=== PATIENT | female | born 1950 | race Two or more races ===

== ENCOUNTER 2017-08-28 13:00 | Inpatient (IN) | payer OTHER ==
[~2017-08-28] VITALS: Ht 152.4 cm; Wt 62.6 kg
[2017-08-28] MEDS ORDERED: COZAAR50 MG PO (15:34)
[2017-08-28] MEDS ORDERED: SIMVASTATIN10 MG PO (15:35)
[2017-08-28] MEDS ORDERED: VITAMIN D310000 UNIT PO (15:35)
[2017-08-28] MEDS ORDERED: [UNRECOGNIZED DRUG - OTHER] PO (15:36)
== END 2017-09-04 12:45 | disposition home or self-care (01) | DRG 735 ==
LOC: OB/GYN 09-03 05:40 → O/R 09-03 05:40 → RECOVERY 09-03 13:00 → SURG 09-03 13:00 → OB/GYN 09-03 15:44 → SURG 09-03 20:00 → OB/GYN 09-04 12:45
PROVIDERS: Obstetrics & Gynecology Gynecologic Oncology
PROC: 07TC4ZZ Resection of Pelvis Lymphatic, Percutaneous Endoscopic Approach (ICD-10-PCS; 2017-09-03)
PROC: 0UT74ZZ Resection of Bilateral Fallopian Tubes, Percutaneous Endoscopic Approach (ICD-10-PCS; 2017-09-03)
PROC: 0UT24ZZ Resection of Bilateral Ovaries, Percutaneous Endoscopic Approach (ICD-10-PCS; 2017-09-03)
PROC: 0UT94ZZ Resection of Uterus, Percutaneous Endoscopic Approach (ICD-10-PCS; principal; 2017-09-03 20:00)
DX: D06.0 Carcinoma in situ of endocervix (principal); N83.292 Other ovarian cyst, left side; N83.291 Other ovarian cyst, right side; N85.01 Benign endometrial hyperplasia